=== PATIENT | male | born 1960 | race African-American/Black ===

== ENCOUNTER 2016-07-28 04:09 | Emergency (ER) | payer MEDICAID ==
[~2016-07-28] VITALS: Ht 172.7 cm; Wt 90.7 kg
[2016-07-28 07:18] VITALS: BP 161/93
[2016-07-28] MEDS: METHOCARBAMOL 500 MG TAB PO ONE (08:01)
[2016-07-28] MEDS: MORPHINE SULFATE 4 MG/ML SYRG IM ONE (08:02)
[2016-07-28] MEDS: ONDANSETRON HCL 4 MG/2 ML VIAL IM ONE (08:02)
== END 2016-07-28 09:16 | disposition home or self-care (01) ==
LOC: ER 04:09
DX: M51.36 Other intervertebral disc degeneration, lumbar region (principal); M54.31 Sciatica, right side; E11.9 Type 2 diabetes mellitus without complications; I10 Essential (primary) hypertension; F17.210 Nicotine dependence, cigarettes, uncomplicated; G89.29 Other chronic pain
CPT/HCPCS: 72100; 96372; 99284; J2270; J2405

== ENCOUNTER 2018-01-19 21:18 | Emergency (ER) | payer MEDICAID ==
[~2018-01-19] VITALS: Ht 172.7 cm; Wt 90.7 kg
[2018-01-19 22:28] LABS: Basophils # (auto) 0.1 uL; Basophils % (auto) 1.3 % (0.0-2.0); Eosinophils # (auto) 0.2 uL; Eosinophils % (auto) 3.5 % (0.0-7.0); Hematocrit 50.4 % (41.0-53.0); Hemoglobin 16.6 g/dL (13.5-17.5); Lymphocytes # (auto) 1.2 uL; Lymphocytes % (auto) 18.9 % (10.0-50.0); Mean Corpuscular Hemoglobin 30.7 pg (28.0-32.0); Mean Corpuscular Volume 93.1 fL (80.0-100.0); Monocytes # (auto) 0.5 uL; Monocytes % (auto) 7.6 % (0.0-12.0); Neutrophils # (auto) 4.4 uL; Neutrophils % (auto) 68.7 % (37.0-80.0); Nucleated Red Blood Cells % 0.3 %; Platelet Count (auto) 220 10^3/uL (140-450); Red Blood Cells 5.42 10^6/uL (4.5-5.90); Red Cell Distribution Width 14.5 % (11.8-14.3); White Blood Cell 6.4 10^3/uL (4.4-10.8)
[2018-01-19 22:45] LABS: Albumin 3.7 g/dL (3.4-5.0); Anion Gap 5 (5-15); Blood Urea Nitrogen 14 mg/dL (7-18); Calcium 8.5 mg/dL (8.5-10.1); Carbon Dioxide 27 mmol/L (21-32); Chloride 109 mmol/L (98-107); Glucose 97 mg/dL (74-106); Potassium 4.2 mmol/L (3.5-5.1); Sodium 141 mmol/L (136-145)
[2018-01-19 22:49] LABS: Alanine Aminotransferase 26 U/L (16-61); Alkaline Phosphatase 88 U/L (45-117); Aspartate Aminotransferase 16 U/L (15-37); BUN/Creatinine Ratio 13.1; Bilirubin, Total 0.3 mg/dL (0.2-1.0); GFR African American 91 mL/min; GFR Non-African American 75 mL/min; Total Protein 7.1 g/dL (6.4-8.2)
[2018-01-20] MEDS ORDERED: HYDROcodone-ACET 5/325MG TAB PO ONE (07:30)
[2018-01-20] MEDS ORDERED: ASPirin 81 mg TAB PO ONE (07:30)
[2018-01-20 07:33] VITALS: BP 146/90
== END 2018-01-20 08:08 | disposition home or self-care (01) ==
LOC: ER 21:18
DX: R07.89 Other chest pain (principal); R06.02 Shortness of breath; E11.9 Type 2 diabetes mellitus without complications; I10 Essential (primary) hypertension; F17.210 Nicotine dependence, cigarettes, uncomplicated
CPT/HCPCS: 36415; 71045; 80053; 83880; 84484; 85025; 85379; 93005